=== PATIENT | female | born 1980 ===

== ENCOUNTER → 2021-08-11 | Outpatient (CLI) | payer OTHER ==
--- NOTE | 2021-08-11 14:36 | RAD ---
EXAM: Nuclear gastric emptying scan. HISTORY: Nausea and vomiting. COMPARISON: None. TECHNIQUE: Serial static images were obtained over the stomach following oral administration of 2 mCi 99m-Tc sulfur colloid. FINDINGS: The stomach empties into the small bowel without evidence of reflux in the area of the esop hagus. Gastric retention percents: 1 hour 100% (normal range 34.8-91%) 2 hour 91% (normal range 2.7-60%) 3 hour 46% (normal range 0.5-28%) 4 hour 27% (normal range 0-10%) The estimated time for half emptying of gastric contents, i.e. 'gastric emptying time' is 120 minutes (normal is 66 +/- 22 minutes). IMPRESSION: Significantly delayed gastric emptying. Electronically signed by: Janelle Temple MD (08/11/2021 2:33 PM) [id number]
== END ==
LOC: NM 08:41
PROVIDERS: ATTEND Internal Medicine Gastroenterology
DX: K30 Functional dyspepsia (principal); R11.2 Nausea with vomiting, unspecified
CPT/HCPCS: 78264; A9541